=== PATIENT | male | born 1955 ===

== ENCOUNTER → 2019-06-25 | Outpatient (CLI) | payer BC ==
[2019-06-25 10:39] LABS: HEMOGLOBIN A1C 6.5 % (< 5.7)
== END ==
LOC: LB.CLINIC 09:07
PROVIDERS: ATTEND Nurse Practitioner Family
DX: Z00.00 Encounter for general adult medical examination without abnormal findings (principal); Z13.6 Encounter for screening for cardiovascular disorders; Z12.5 Encounter for screening for malignant neoplasm of prostate; R73.01 Impaired fasting glucose
CPT/HCPCS: 36415; 80048; 83036; G0103

== ENCOUNTER 2020-01-01 11:57 | Emergency (ER) | payer BC ==
[2020-01-01 12:21] VITALS: PULSE 106
== END 2020-01-01 12:33 | disposition home or self-care (01) ==
LOC: LB.ED 11:57
DX: Z53.21 Procedure and treatment not carried out due to patient leaving prior to being seen by health care provider (principal)